=== PATIENT | female | born 1965 | race Caucasian/White ===

== ENCOUNTER 2019-02-23 12:24 | Outpatient (REF) | payer BC, SELFPAY ==
--- NOTE | 2019-02-23 14:20 | PAPFT_PTH ---
PATIENT: Amna Fulton LOC: [facility] U#:[id number] AGE/SX: 53/F ROOM: RE02/23/[address]: Michael Pride : 1965 BED: DIS: 02/23/2019 SPEC #: [id number] RECD: 02/26/19 12:40 STATUS: WESLEY REQ #: [id number] MASSIMO: 02/23/19 14:[address]: Michael Pride DEPT: [facility] Cytology RECD BY: Michelle Berg ENTERED: 02/26/19 12:40 SP TYPE: PAPFT OTHR DR: Michelle Valdivia Tissues: 1 - CX/ENDOCX FOR PAP SMEARS Procedures: PAP THIN PREP/UVM Screening HPV DNA PROBE Comments: [id number]
== END 2019-02-23 12:44 ==
LOC: NCHCN 12:24
PROVIDERS: PCP Nurse Practitioner Family; Visit Provider Family Medicine
DX: Z12.4 Encounter for screening for malignant neoplasm of cervix (principal); Z11.51 Encounter for screening for human papillomavirus (HPV)
CPT/HCPCS: 88142; 87624

== ENCOUNTER 2019-02-28 13:06 | Outpatient (REF) | payer BC, SELFPAY ==
[2019-02-28 22:25] LABS: ALT 20 U/L (14-59); AST 14 U/L (15-37); Albumin 4.1 g/dL (3.4-5.0); Alkaline Phosphatase 57 U/L (46-116); Anion Gap 9.6 mmol/L (3-11); BUN 13 mg/dL (7-18); Bilirubin, Total 0.5 mg/dL (0.2-1.0); CO2 27.4 mmol/L (21.0-32.0); CREATININE 0.63 mg/dL (0.55-1.02); Calcium 8.7 mg/dL (8.5-10.1); Chloride 106 mmol/L (98-107); Glucose 93 mg/dL (74-106); Potassium 4.1 mmol/L (3.5-5.1); Sodium 143 mmol/L (136-145); TSH (W/Ref FT4) 2.15 uIU/mL (0.36-3.74); Total Protein 7.5 g/dL (6.4-8.2); Vitamin B12 519 pg/mL (193-986)
== END 2019-02-28 13:26 ==
LOC: NCHCN 13:06
PROVIDERS: PCP Nurse Practitioner Family; Visit Provider Nurse Practitioner Family
DX: R13.10 Dysphagia, unspecified (principal); F10.11 Alcohol abuse, in remission; Z13.29 Encounter for screening for other suspected endocrine disorder
CPT/HCPCS: 80053; 82607; 84443

== ENCOUNTER 2019-09-14 08:26 | Outpatient (CLI) | payer MEDICAID, SELFPAY ==
[2019-09-15 23:56] LABS: SARS-CoV-2 RNA Undetected (Undetected); SARS-CoV-2 Specimen Source Nasopharynx
== END 2019-09-14 08:46 ==
PROVIDERS: PCP Nurse Practitioner Family; Visit Provider Family Medicine
DX: Z20.828 Contact with and (suspected) exposure to other viral communicable diseases (principal)
CPT/HCPCS: U0003

== ENCOUNTER 2020-02-28 15:51 | Outpatient (REF) | payer MEDICAID, SELFPAY ==
--- NOTE | 2020-02-28 15:00 | PAPFT_PTH ---
PATIENT: Amna Fulton LOC: [facility]#:[id number] AGE/SX: 54/F ROOM: RE02/28/[address]: Michael Pride : 1965 BED: DIS: 02/28/2020 SPEC #: [id number] RECD: 02/29/20 13:02 STATUS: WESLEY REYessi #: [id number] MASSIMO: 02/28/20 15:[address]: Michael Pride DEPT: [facility] Cytology RECD BY: Michelle Berg ENTERED: 02/29/20 13:02 SP TYPE: PAPFT OTHR DR: Michelle Valdivia Tissues: 1 - CX/ENDOCX FOR PAP SMEARS Procedures: PAP THIN PREP/UVM Screening HPV DNA PROBE Comments: [id number]
== END 2020-02-28 16:11 ==
LOC: NCHCN 15:51
PROVIDERS: PCP Nurse Practitioner Family; Visit Provider Family Medicine
DX: Z12.4 Encounter for screening for malignant neoplasm of cervix (principal); Z11.51 Encounter for screening for human papillomavirus (HPV)
CPT/HCPCS: 88142; 87624

== ENCOUNTER 2022-04-30 21:38 | Outpatient (REF) | payer MEDICAID, SELFPAY ==
[2022-05-02 19:36] LABS: Campylobacter PCR Negative (Negative); Salmonella PCR Negative (Negative); Shiga Toxin PCR Negative (Negative); Shigella/Enteroinvasive Ecoli Negative (Negative)
== END 2022-04-30 21:39 | disposition home or self-care (01) ==
LOC: NCHCN 21:38
PROVIDERS: PCP Nurse Practitioner Family; Visit Provider Family Medicine
DX: R19.7 Diarrhea, unspecified (principal)
CPT/HCPCS: 87505; 83630; 87177

== ENCOUNTER 2022-05-03 16:13 | Outpatient (REF) | payer MEDICAID, SELFPAY | END 2022-05-03 16:14 | disposition home or self-care (01) | LOC: NCHCN 16:13 | PROVIDERS: PCP Nurse Practitioner Family; Visit Provider Family Medicine | DX: R19.7 Diarrhea, unspecified (principal) | CPT/HCPCS: 87177 ==

== ENCOUNTER 2022-05-04 17:07 | Outpatient (REF) | payer MEDICAID, SELFPAY ==
[2022-05-06 14:28] LABS: Specimen Description STOOL
== END 2022-05-04 17:08 | disposition home or self-care (01) ==
LOC: NCHCN 17:07
PROVIDERS: PCP Nurse Practitioner Family; Visit Provider Family Medicine
DX: R19.7 Diarrhea, unspecified (principal)
CPT/HCPCS: 87177

== ENCOUNTER 2023-09-28 23:48 | Outpatient (REF) | payer MEDICAID, SELFPAY | END 2023-09-28 23:49 | disposition home or self-care (01) | LOC: NCHCN 23:48 | PROVIDERS: PCP Nurse Practitioner Family; Visit Provider Family Medicine | DX: R19.7 Diarrhea, unspecified (principal) | CPT/HCPCS: 87177 ==

== ENCOUNTER 2023-10-12 18:07 | Outpatient (REF) | payer MEDICAID, SELFPAY ==
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
== END 2023-10-12 18:08 | disposition home or self-care (01) ==
LOC: NCHCN 18:07
PROVIDERS: PCP Nurse Practitioner Family; Visit Provider Family Medicine
DX: R19.7 Diarrhea, unspecified (principal)
CPT/HCPCS: 87177

== ENCOUNTER 2024-06-12 18:38 | Outpatient (REF) | payer MEDICAID, SELFPAY ==
[2024-06-14 10:52] LABS: IgA 198 mg/dL (85-499); Interpretation (See Note); Tissue Transglutaminase IgA <4.0 CU (<20.0)
== END 2024-06-12 18:39 | disposition home or self-care (01) ==
LOC: NCHCN 18:38
PROVIDERS: PCP Nurse Practitioner Family; Visit Provider Family Medicine
DX: R14.0 Abdominal distension (gaseous) (principal)
CPT/HCPCS: 82784; 83516